=== PATIENT | male | born 1965 | race Caucasian/White ===

== ENCOUNTER 2020-09-01 07:04 | Outpatient (CLI) | payer OTHER ==
--- NOTE | 2020-09-01 07:37 | ULT ---
Sonogram right upper quadrant History: Abnormal liver function tests. FINDINGS: Gallbladder has a normal appearance without stones. Common duct is 0.6 cm. Liver is predominantly echogenic with subtle areas of fatty sparing near the gallbladder fossa. No fo drea mass. No free fluid. Tiny right renal cyst incidentally noted. IMPRESSION : Hepato-steatosis. No evidence of gallstones or biliary obstruction.
== END 2020-09-01 07:05 | disposition home or self-care (01) ==
LOC: BICULT 07:04
PROVIDERS: ATTEND Internal Medicine
DX: R74.01 Elevation of levels of liver transaminase levels (principal); K76.0 Fatty (change of) liver, not elsewhere classified
CPT/HCPCS: 76705